=== PATIENT | male | born 1975 | race Caucasian/White ===

== ENCOUNTER 2023-02-01 14:35 | Emergency (ER) | payer BC ==
[2023-02-01 14:44] VITALS: BP 155/85; PULSE 74; RESP 18; TEMP 97.6; BMI 41.2
== END 2023-02-01 15:45 | disposition home or self-care (01) ==
LOC: FER 14:35
DX: K64.4 Residual hemorrhoidal skin tags (principal)
CPT/HCPCS: 99283-25